=== PATIENT | female | born 1965 | race Caucasian/White ===

== ENCOUNTER 2017-02-19 14:31 | Emergency (ER) | payer OTHER ==
[~2017-02-19] VITALS: Ht 167.6 cm; Wt 95.3 kg
[~2017-02-19 14:31] MED LIST: DULO30EC PO; QUET200T PO; TOPI50TA PO
[2017-02-19 15:10] VITALS: BP 153/90
[2017-02-19] MEDS: KETOROLAC 60 MG/2 ML VIAL IM ONE (17:08)
[2017-02-19 17:58] VITALS: BP 141/66
== END 2017-02-19 17:58 | disposition home or self-care (01) ==
LOC: MED 14:31
DX: M25.551 Pain in right hip (principal); E11.9 Type 2 diabetes mellitus without complications; I10 Essential (primary) hypertension; F25.9 Schizoaffective disorder, unspecified; F32.9 Major depressive disorder, single episode, unspecified; E03.9 Hypothyroidism, unspecified; F17.210 Nicotine dependence, cigarettes, uncomplicated; Z88.8 Allergy status to other drugs, medicaments and biological substances
CPT/HCPCS: 73502; 96372; 99284; J1885